=== PATIENT | female | born 1955 | race Caucasian/White ===

== ENCOUNTER → 2016-09-04 | Outpatient (REF) | payer MEDICARE, OTHER ==
[2016-09-04 19:02] LABS: BASO % 0.4 % (0.0-1.0); EOS # 0.2 K/mm3 (0.0-0.50); EOS % 3.7 % (0.0-3.0); LARGE UNSTAINED CELL # 0.2 K/mm3 (0.0-0.4); LARGE UNSTAINED CELL % 2.8 % (0.0-4.0); LYMPH # 1.5 K/mm3 (1.5-4.5); LYMPH % 24.9 % (24.0-44.0); MEAN CORPUSCULAR HEMOGLOBIN 31.3 pg (27.0-33.0); MEAN CORPUSCULAR HGB CONC 31.5 g/dl (32.0-36.5); MEAN CORPUSCULAR VOLUME 99.4 fl (80.0-96.0); MONO # 0.4 K/mm3 (0.0-0.8); MONO % 6.8 % (0.0-5.0); NEUTROPHILS # 3.7 K/mm3 (1.8-7.7); NEUTROPHILS % 61.4 % (36.0-66.0); PLATELET COUNT, AUTOMATED 236 k/mm3 (150-450); RED CELL DISTRIBUTION WIDTH 12.5 % (11.5-14.5)
[2016-09-04 19:19] LABS: REASON FOR REVIEW COMPREHENSIVE REVIEW
[2016-09-07 13:42] LABS: CHOLESTEROL LEVEL 137 MG/DL (<200); FERRITIN 8 NG/ML (8-252); FREE T4 1.01 NG/DL (0.76-1.46); PERCENT SATURATION 11.7 % (13.2-37.4); TOTAL IRON BINDING CAPACITY 480 UG/DL (250-450); TRIGLYCERIDES LEVEL 172 MG/DL (<150)
[2016-09-07 14:07] LABS: VITAMIN B12 LEVEL 630 PG/ML (247-911)
== END | disposition home or self-care (01) ==
LOC: M SFHCPLAZ 15:06
PROVIDERS: ATTEND Physician Assistant Medical
DX: D50.9 Iron deficiency anemia, unspecified (principal); I10 Essential (primary) hypertension; Z98.84 Bariatric surgery status; F32.9 Major depressive disorder, single episode, unspecified; R73.01 Impaired fasting glucose; E55.9 Vitamin D deficiency, unspecified; E53.8 Deficiency of other specified B group vitamins

== ENCOUNTER → 2016-10-06 | Outpatient (REF) | payer MEDICARE, OTHER | LOC: M SFHCPLAZ 15:28 | PROVIDERS: ATTEND Physician Assistant Medical | DX: R31.9 Hematuria, unspecified (principal); R30.0 Dysuria | CPT/HCPCS: 81001; 81002; 87086; G0463 ==

== ENCOUNTER → 2016-11-16 | Day surgery (SDC) | payer MEDICARE, BC, OTHER ==
[~2016-11-16] VITALS: Ht 157.5 cm; Wt 81.6 kg
[~2016-11-16] MED LIST: ACTO30TA7 PO; AMBI10TA PO; B-12100010 PO; BISO10TA PO; CIPRODEX OTIC SUSP 7.5ML As Ordered ONE; COPA20IN SC; CRAN1TAB PO; CRES20TA PO; D 10CAP PO; EPINEPHrine INJ 1 MG/ML 1ML VIAL/AMP As Ordered ONE; FENT12PA TOP; IBUPROFEN 800 MG TAB PO PRN; IRON50TA PO; LIDOCAINE 2% INJ 100 MG/5 ML SDV (FOR ANES.) As Ordered ONE; LR 1,000 ML IV SCH; LYRI100C10 PO; MIDAZOLAM INJ 2 MG/2 ML VIAL (J2250) As Ordered ONE; OMEP10CASR PO; ONDANSETRON 4MG/2ML VIAL (J2405) As Ordered ONE; ONDANSETRON 4MG/2ML VIAL (J2405) IV PRN; PROPOFOL 200 MG/20 ML VIAL As Ordered ONE; SEVE40CA PO; VICO5TAB16 PO; ZOLO100T PO; fentaNYL 100 MCG/2 ML INJECTION (J3010) As Ordered ONE; fentaNYL 100 MCG/2 ML INJECTION (J3010) IV PRN
[2016-11-16 15:45] VITALS: BP 124/58
--- NOTE | 2016-11-17 08:42 | RO ---
DATE OF PROCEDURE: 11/16/2016 PREPROCEDURE DIAGNOSES: Right conductive hearing loss and right chronic otitis media. POSTPROCEDURE DIAGNOSES: Right conductive hearing loss and right chronic otitis media. PROCEDURE: Examination of right ear under anesthesia with right diagnostic myringotomy. SURGEON: Yaw Da Silva MD CLINICAL REVIEW SPECIALIST: ANESTHESIA: INDICATIONS: This is a 60-year-old that has had a long-standing history of mixed hearing loss associated with a significant conductive hearing loss in the right ear. She appeared on examination to have an opacified tympanic membrane, which was retracted. In the office, an office myringotomy had been performed, which allowed a tube to be placed temporarily in her ear. She claimed that she got some relief of her hearing loss from this. However, in spite of the conductive hearing loss on tympanogram, the tube did not stay in very long. She was brought to the operating room for another attempt for ventilation of the middle ear. DESCRIPTION OF PROCEDURE: After satisfactory mask anesthesia administered, the right ear was examined and cleaned of wax. The tympanic membrane appeared to be globally retracted with opacification and diffuse tympanosclerosis noted. There was some neovascularization noted as well. The normal landmarks, including the malleus handle and umbo were invisible because of the retraction of the tympanic membrane. It also appeared to be quite thickened. An anterior-inferior myringotomy was made and it was quite a vascular tympanic membrane, which was very, very thick. No middle ear space was identified through the myringotomy, but there was quite a bit of active bleeding from the incision that was made. Adrenaline pledgets were placed in the drum to control the bleeding. After this was managed, a pick was used to try to move the tympanic membrane to try to establish a middle ear space to place a tube and none could be identified. Only more bleeding was stirred up. There appeared to be a hyperplastic mucosa on the other side of this thickened tympanic membrane that was the source of the bleeding. After adrenaline pledgets were used to control this bleeding, one more attempt at a myringotomy was made more superiorly and again significant bleeding was encountered from the incision alone and no middle ear space was identified. I elected at this point to withdraw and to pursue some more diagnostic tests to establish what the status of the middle ear was. CT of the temporal bone was going to be planned before the next visit. She tolerated the procedure well and was sent to recovery in satisfactory condition. Situation was explained to the that no tube was placed because there was no middle ear space available to sustain it.
== END | disposition home or self-care (01) ==
LOC: M SDC 12:13
PROVIDERS: ATTEND Specialist
DX: H65.21 Chronic serous otitis media, right ear (principal); H90.71 Mixed conductive and sensorineural hearing loss, unilateral, right ear, with unrestricted hearing on the contralateral side; I10 Essential (primary) hypertension; E78.00 Pure hypercholesterolemia, unspecified; G35 Multiple sclerosis; K21.9 Gastro-esophageal reflux disease without esophagitis; M79.7 Fibromyalgia; F32.9 Major depressive disorder, single episode, unspecified; R73.01 Impaired fasting glucose; M50.30 Other cervical disc degeneration, unspecified cervical region; M47.816 Spondylosis without myelopathy or radiculopathy, lumbar region; G47.33 Obstructive sleep apnea (adult) (pediatric); L40.9 Psoriasis, unspecified; Z98.84 Bariatric surgery status; Z79.899 Other long term (current) drug therapy; Z88.0 Allergy status to penicillin; Z88.8 Allergy status to other drugs, medicaments and biological substances
CPT/HCPCS: 69421; J2250; J2405; J3010

== ENCOUNTER → 2016-12-07 | Outpatient (CLI) | payer MEDICARE, BC, OTHER ==
[~2016-12-07] MED LIST changes: -CIPRODEX OTIC SUSP 7.5ML As Ordered ONE; -EPINEPHrine INJ 1 MG/ML 1ML VIAL/AMP As Ordered ONE; -IBUPROFEN 800 MG TAB PO PRN; -LIDOCAINE 2% INJ 100 MG/5 ML SDV (FOR ANES.) As Ordered ONE; -LR 1,000 ML IV SCH; -MIDAZOLAM INJ 2 MG/2 ML VIAL (J2250) As Ordered ONE; -ONDANSETRON 4MG/2ML VIAL (J2405) As Ordered ONE; -ONDANSETRON 4MG/2ML VIAL (J2405) IV PRN; -PROPOFOL 200 MG/20 ML VIAL As Ordered ONE; -fentaNYL 100 MCG/2 ML INJECTION (J3010) As Ordered ONE; -fentaNYL 100 MCG/2 ML INJECTION (J3010) IV PRN
--- NOTE | 2016-12-08 09:05 | REP ---
CT IAC WITHOUT CONTRAST: HISTORY: Hearing loss. The right internal auditory canal, cochlea, vestibule, and semicircular canals are normal in appearance. The ossicles are normal in configuration and position. A soft tissue density is present in the external auditory canal. This abuts the right tympanic membrane. The scutum and tegmen are intact. There is no bone erosion. The middle ear cavity and mastoid air cells are clear. The left internal auditory canal, cochlea, vestibule, and semicircular canals are normal in appearance. The ossicles are normal in configuration and position. The scutum and tegmen are intact. The middle ear cavity and mastoid air cells are clear. IMPRESSION: There is soft tissue density in the right external auditory canal. This abuts the right tympanic membrane. There is no bone erosion. This may represent inflammatory or scar tissue related to chronic otitis. Signed by Jose Antonio Martinez MD 12/08/2016 09:09 A
== END ==
LOC: M RAD 17:02
PROVIDERS: ATTEND Specialist
DX: H90.11 Conductive hearing loss, unilateral, right ear, with unrestricted hearing on the contralateral side (principal); H65.21 Chronic serous otitis media, right ear

== ENCOUNTER → 2017-10-06 | Outpatient (REF) | payer MEDICARE, OTHER ==
[2017-10-06 19:24] LABS: BASO % 0.4 % (0.0-1.0); EOS % 0.6 % (0.0-3.0); HEMATOCRIT 35.7 % (36.0-47.0); HEMOGLOBIN 11.4 g/dl (12.0-16.0); IMMATURE GRANULOCYTE % 0.2 % (0-3.0); LYMPH % 37.1 % (24.0-44.0); MEAN CORPUSCULAR HGB CONC 31.9 g/dl (32.0-36.5); MEAN CORPUSCULAR VOLUME 103.5 fl (80.0-96.0); MONO # 0.5 10^3/uL (0.0-0.8); MONO % 9.9 % (0.0-5.0); NEUTROPHILS # 2.7 10^3/uL (1.8-7.7); NEUTROPHILS % 51.8 % (36.0-66.0); PLATELET COUNT, AUTOMATED 179 10^3/uL (150-450); RED BLOOD COUNT 3.45 10^6/uL (4.00-5.40); RED CELL DISTRIBUTION WIDTH 12.2 % (11.5-14.5); WHITE BLOOD COUNT 5.3 10^3/uL (4.0-10.0)
[2017-10-06 20:06] LABS: PTH INTACT 243.7 PG/ML (18.5-88.0); TOTAL 25(OH) VITAMIN D 52.8 NG/ML (30.0-100.0); VITAMIN B12 LEVEL 1486 PG/ML (247-911)
[2017-10-06 20:32] LABS: ALBUMIN 4.3 GM/DL (3.2-5.2); ALKALINE PHOSPHATASE 147 U/L (45-117); ALT/SGPT 38 U/L (12-78); ANION GAP 11 MEQ/L (8-16); AST/SGOT 44 U/L (7-37); BILIRUBIN,TOTAL 0.3 MG/DL (0.2-1.0); BLOOD UREA NITROGEN 17 MG/DL (7-18); CALCIUM LEVEL 8.3 MG/DL (8.5-10.1); CARBON DIOXIDE LEVEL 24 MEQ/L (21-32); CHLORIDE LEVEL 104 MEQ/L (98-107); CHOLESTEROL LEVEL 121 MG/DL (<200); CPK CREATINE PHOSPHOKINASE 133 U/L (26-192); CREATININE FOR GFR 1.13 MG/DL (0.55-1.30); FERRITIN 317 NG/ML (8-252); FREE T4 0.92 NG/DL (0.76-1.46); GLOMERULAR FILTRATION RATE 52.5 (>51); GLUCOSE, FASTING 105 MG/DL (70-100); HDL CHOLESTEROL 42 MG/DL (>40); IRON (FE) 45 UG/DL (50-170); NON-HDL-C 79 MG/DL; PERCENT SATURATION 15.7 % (13.2-45.0); POTASSIUM SERUM 3.7 MEQ/L (3.5-5.1); SODIUM LEVEL 139 MEQ/L (136-145); TOTAL IRON BINDING CAPACITY 286 UG/DL (250-450); TOTAL PROTEIN 7.6 GM/DL (6.4-8.2); TRIGLYCERIDES LEVEL 125 MG/DL (<150)
== END ==
LOC: M SFHCPLAZ 16:00
DX: E53.8 Deficiency of other specified B group vitamins (principal); D50.9 Iron deficiency anemia, unspecified; E55.9 Vitamin D deficiency, unspecified; E78.5 Hyperlipidemia, unspecified; F32.9 Major depressive disorder, single episode, unspecified
CPT/HCPCS: 82550

== ENCOUNTER → 2017-11-26 | Outpatient (CLI) | payer MEDICARE, BC, OTHER | LOC: M RAD 09:09 | DX: E21.3 Hyperparathyroidism, unspecified (principal) | CPT/HCPCS: 78070 ==

== ENCOUNTER → 2018-05-13 | Outpatient (REF) | payer MEDICARE, OTHER ==
[2018-05-13 15:47] LABS: BASO # 0.1 10^3/uL (0.0-0.2); BASO % 0.7 % (0.0-1.0); EOS # 0.3 10^3/uL (0.0-0.50); EOS % 3.9 % (0.0-3.0); HEMATOCRIT 34.4 % (36.0-47.0); HEMOGLOBIN 10.9 g/dl (12.0-15.5); IMMATURE GRANULOCYTE % 0.2 % (0-3.0); LYMPH # 3.2 10^3/uL (1.5-4.5); LYMPH % 39.1 % (24.0-44.0); MEAN CORPUSCULAR HEMOGLOBIN 33.1 pg (27.0-33.0); MEAN CORPUSCULAR HGB CONC 31.7 g/dl (32.0-36.5); MEAN CORPUSCULAR VOLUME 104.6 fl (80.0-96.0); MONO # 0.5 10^3/uL (0.0-0.8); NEUTROPHILS # 4.1 10^3/uL (1.8-7.7); NEUTROPHILS % 50.1 % (36.0-66.0); PLATELET COUNT, AUTOMATED 200 10^3/uL (150-450); RED BLOOD COUNT 3.29 10^6/uL (4.00-5.40); RETIC HEMOGLOBIN EQUIVALENT 37.6 pg (24-36); RETICULOCYTE # 45.1 10^9/L (17-77); RETICULOCYTE % 1.4 % (0.5-1.5); WHITE BLOOD COUNT 8.2 10^3/uL (4.0-10.0)
[2018-05-13 15:50] LABS: APPEARANCE, URINE CLEAR (CLEAR); BACTERIA, URINE AUTO NEGATIVE (NEGATIVE); BILIRUBIN, URINE AUTO NEGATIVE (NEGATIVE); BLOOD, URINE BLOOD NEGATIVE (NEGATIVE); COLOR, URINE YELLOW (YELLOW); GLUCOSE, URINE (UA) AUTO NEGATIVE (NEGATIVE); KETONE, URINE AUTO NEGATIVE (NEGATIVE); LEUKOCYTE ESTERASE, URINE AUTO NEGATIVE (NEGATIVE); MUCUS, URINE SMALL (NEGATIVE); NITRITE, URINE AUTO NEGATIVE (NEGATIVE); PROTEIN, URINE AUTO NEGATIVE (NEGATIVE); RBC, URINE AUTO 1 /HPF (0-3); SPECIFIC GRAVITY URINE AUTO 1.015 (1.002-1.035); SQUAMOUS EPITHELIAL CELL UR AU 0 /HPF (0-6); UROBILINOGEN, URINE AUTO 0.2 mg/dL (0.0-2.0); WBC, URINE AUTO 2 /HPF (0-3)
[2018-05-13 16:04] LABS: TOTAL PROTEIN 7.4 GM/DL (6.4-8.2)
[2018-05-13 16:06] LABS: TOTAL 25(OH) VITAMIN D 35.4 NG/ML (30.0-100.0)
[2018-05-13 16:07] LABS: PTH INTACT 120.4 PG/ML (18.5-88.0)
[2018-05-13 16:07] LABS: THYROID PEROXIDASE ANTIBODY < 28.0 U/ML (<60.0)
[2018-05-13 16:09] LABS: ESTIMATED AVERAGE GLUCOSE 123 MG/DL (60-110); HEMOGLOBIN A1c 5.9 %
[2018-05-13 16:30] LABS: MALB URINE SIEMENS 10.1 MG/L
[2018-05-13 16:41] LABS: MAU/CREAT RATIO 8.9 MCG/MG (0.0-30.0)
[2018-05-13 17:20] LABS: HEMATOCRIT 34.4 % (36.0-47.0)
[2018-05-17 11:04] LABS: PRETREATED FOLATE FOR RBCFOL 12.4 NG/ML
[2018-05-17 13:50] LABS: ALBUMIN % 58.1 % (55.8-66.1); ALPHA-1-GLOBULIN % 4.8 % (2.9-4.9); ALPHA-1-GLOBULINS 0.36 GM/DL (0.17-0.41); ALPHA-2-GLOBULINS 0.93 GM/DL (0.42-0.99); ALPHA-2-GLOBULINS % 12.5 % (7.1-11.8); BETA-1-GLOBULINS 0.47 GM/DL (0.28-0.60); BETA-1-GLOBULINS % 6.4 % (4.7-7.2); BETA-2-GLOBULINS % 6.4 % (3.2-6.5); GAMMA GLOBULIN % 11.8 % (11.1-18.8)
[2018-05-17 13:51] LABS: BETA-2-GLOBULINS 0.47 GM/DL (0.19-0.55); GAMMA GLOBULINS 0.87 GM/DL (0.65-1.58)
== END ==
LOC: M SFHCPLAZ 14:35
DX: D50.9 Iron deficiency anemia, unspecified (principal); R73.01 Impaired fasting glucose; E55.9 Vitamin D deficiency, unspecified; E78.5 Hyperlipidemia, unspecified; Z79.899 Other long term (current) drug therapy
CPT/HCPCS: 83525

== ENCOUNTER → 2018-12-01 | Outpatient (REF) | payer MEDICARE, OTHER ==
[~2018-12-01] MED LIST changes: +ACTO30TA15 PO; -ACTO30TA7 PO; -BISO10TA PO; +BISO10TA13 PO; -CRES20TA PO; +CRES20TA2 PO; +FENT12DI12 TOP; -FENT12PA TOP; -LYRI100C10 PO; +PREG100CA PO; -VICO5TAB16 PO; +VICO5TAB17 PO
[2018-12-01 19:18] LABS: ALBUMIN 4.5 GM/DL (3.2-5.2); ALT/SGPT 33 U/L (12-78); BILIRUBIN,TOTAL 0.3 MG/DL (0.2-1.0); BLOOD UREA NITROGEN 19 MG/DL (7-18); CALCIUM LEVEL 8.2 MG/DL (8.8-10.2); CARBON DIOXIDE LEVEL 28 MEQ/L (21-32); CHLORIDE LEVEL 106 MEQ/L (98-107); FERRITIN 117 NG/ML (8-252); GLOMERULAR FILTRATION RATE > 60.0 (>45); GLUCOSE, FASTING 103 MG/DL (70-100); IRON (FE) 115 UG/DL (50-170); PERCENT SATURATION 32.3 % (13.2-45.0); POTASSIUM SERUM 4.6 MEQ/L (3.5-5.1); SODIUM LEVEL 140 MEQ/L (136-145); TOTAL IRON BINDING CAPACITY 356 UG/DL (250-450); TOTAL PROTEIN 7.8 GM/DL (6.4-8.2)
[2018-12-01 19:24] LABS: VITAMIN B12 LEVEL 571 PG/ML (247-911)
[2018-12-01 20:13] LABS: HEMOGLOBIN A1c 6.2 %
[2018-12-01 20:22] LABS: BASO # 0.1 10^3/uL (0.0-0.2); BASO % 1.2 % (0.0-1.0); EOS # 0.2 10^3/uL (0.0-0.50); EOS % 2.7 % (0.0-3.0); HEMATOCRIT 36.2 % (36.0-47.0); HEMOGLOBIN 11.3 g/dl (12.0-15.5); LYMPH # 2.6 10^3/uL (1.5-4.5); LYMPH % 35.4 % (24.0-44.0); MEAN CORPUSCULAR HEMOGLOBIN 32.9 pg (27.0-33.0); MEAN CORPUSCULAR HGB CONC 31.2 g/dl (32.0-36.5); MEAN CORPUSCULAR VOLUME 105.5 fl (80.0-96.0); MONO # 0.6 10^3/uL (0.0-0.8); MONO % 7.8 % (0.0-5.0); NEUTROPHILS # 3.9 10^3/uL (1.8-7.7); NEUTROPHILS % 52.4 % (36.0-66.0); PLATELET COUNT, AUTOMATED 217 10^3/uL (150-450); RED BLOOD COUNT 3.43 10^6/uL (4.00-5.40); WHITE BLOOD COUNT 7.5 10^3/uL (4.0-10.0)
[2018-12-03 10:11] LABS: H PYLORI SERUM QUANT IgG ABY 0.3 (0.00-0.79)
[2018-12-03 14:36] LABS: INSULIN LEVEL 13.9 uIU/mL (2.6-24.9)
== END ==
LOC: M SFHCPLAZ 15:10
PROVIDERS: ATTEND Family Medicine
DX: D50.9 Iron deficiency anemia, unspecified (principal); R73.01 Impaired fasting glucose; M79.7 Fibromyalgia; E53.8 Deficiency of other specified B group vitamins
CPT/HCPCS: 36415; 80053; 82607; 82728; 83036; 83525; 83550; 83735; 85025; 86677; G0463

== ENCOUNTER 2019-02-26 20:12 | Emergency (ER) | payer MEDICARE, OTHER ==
[~2019-02-26] VITALS: Ht 157.5 cm; Wt 94.1 kg
[2019-02-26] MEDS ORDERED: IRBE150T12 PO (20:20)
[2019-02-26] MEDS ORDERED: SAVE100T PO (20:20)
[2019-02-26 20:56] LABS: BASO % 0.4 % (0.0-1.0); HEMATOCRIT 35.2 % (36.0-47.0); HEMOGLOBIN 11.8 g/dl (12.0-15.5); LYMPH % 12.5 % (24.0-44.0); MEAN CORPUSCULAR HEMOGLOBIN 33.4 pg (27.0-33.0); MEAN CORPUSCULAR HGB CONC 33.5 g/dl (32.0-36.5); MEAN CORPUSCULAR VOLUME 99.7 fl (80.0-96.0); MONO # 0.4 10^3/uL (0.0-0.8); MONO % 4.4 % (0.0-5.0); NEUTROPHILS # 6.7 10^3/uL (1.8-7.7); NEUTROPHILS % 82.3 % (36.0-66.0); PLATELET COUNT, AUTOMATED 180 10^3/uL (150-450); RED BLOOD COUNT 3.53 10^6/uL (4.00-5.40); WHITE BLOOD COUNT 8.2 10^3/uL (4.0-10.0)
[2019-02-26 21:14] VITALS: BP 139/67
[2019-02-26 21:16] LABS: BLOOD UREA NITROGEN 14 MG/DL (7-18); CALCIUM LEVEL 9.4 MG/DL (8.8-10.2); CARBON DIOXIDE LEVEL 23 MEQ/L (21-32); CHLORIDE LEVEL 104 MEQ/L (98-107); CREATININE FOR GFR 1.03 MG/DL (0.55-1.30); GLUCOSE, FASTING 179 MG/DL (70-100); POTASSIUM SERUM 3.9 MEQ/L (3.5-5.1); SODIUM LEVEL 137 MEQ/L (136-145)
[2019-02-26] MEDS ORDERED: ONDANSETRON 4MG/2ML VIAL (J2405) IV ONE (21:45)
[2019-02-26] MEDS ORDERED: CBD OIL (21:53)
[2019-02-26 21:57] LABS: CK-MB VALUE MASS 2.8 NG/ML (<3.6); CPK CREATINE PHOSPHOKINASE 160 U/L (26-192); MB/CK RELATIVE INDEX 1.75 (< OR =4); NT-PRO BNP 388 PG/ML (<125); TROPONIN I < 0.02 NG/ML (< 0.10)
[2019-02-26] MEDS ORDERED: NS 1,000 ML IV ONE (22:00)
[2019-02-26] MEDS ORDERED: METOCLOPRAMIDE INJ 10MG/2ML VIAL (J2765) IV ONE (23:00)
[2019-02-26] MEDS ORDERED: NORCO, ANEXSIA 5/325MG TABLET (HYDROcodone/ACETAMINOPHEN) PO ONE (23:00)
[2019-02-26] MEDS ORDERED: REGL5TAB2 PO (23:37)
--- NOTE | 2019-02-27 07:05 | REP ---
PA and lateral chest: Comparison is 10/31/2014. The lung maloney are clear. The cardiac size is normal. The chi, mediastinum, and skeletal structures are unremarkable. There is chronic elevation of the right hemidiaphragm. Impression: Negative PA and lateral chest. There is no interval change. Electronically Signed by Isaak Menon MD 02/27/2019 06:55 A
--- NOTE | 2019-02-27 07:20 | ECGEPIP ---
[facility] - ED Test Date: 2019-02-26 Pat Name: SERENE HOLLIS Department: Room: - Gender: Female [employer]: LR : 1955 Requested By: SWAPNIL Olvera PA-C Order Number: [id number] Reading MD: Figueroa Rogers Measurements Intervals [place] Rate: 95 P: 56 DC: 191 QRS: 16 QRSD: 90 T: 20 QT: 356 QTc: 449 Interpretive Statements SINUS RHYTHM POSSIBLE PRIOR INFERIOR INFARCT BASELINE ARTIFACT AFFECTS INTERPRETATION SIMILAR TO 10/21/14 Electronically Signed on 02-27-2019 7:19:48 EDT by Figueroa Rogers
== END 2019-02-26 23:51 | disposition home or self-care (01) ==
LOC: M ED 20:12
DX: R11.0 Nausea (principal); M79.10 Myalgia, unspecified site; R53.1 Weakness; I10 Essential (primary) hypertension; E78.5 Hyperlipidemia, unspecified; Z98.84 Bariatric surgery status; Z88.0 Allergy status to penicillin; Z88.8 Allergy status to other drugs, medicaments and biological substances; Z79.899 Other long term (current) drug therapy
CPT/HCPCS: 71046; 80048; 81001; 82550; 82553; 83880; 84484; 85025; 93005; 96374; 96375; 99284; J2405; J2765

== ENCOUNTER → 2019-09-27 | Outpatient (CLI) | payer MEDICARE, BC, OTHER ==
[~2019-09-27] MED LIST changes: +CBD OIL; +IRBE150T7 PO; +REGL5TAB2 PO; +SAVE100T PO
[2019-09-27 14:19] LABS: BASO # 0.1 10^3/uL (0.0-0.2); BASO % 0.8 % (0.0-1.0); EOS # 0.2 10^3/uL (0.0-0.5); EOS % 2.3 % (0.0-3.0); HEMATOCRIT 35.6 % (36.0-47.0); HEMOGLOBIN 11.7 g/dl (12.0-15.5); LYMPH # 2.4 10^3/uL (1.5-5.0); LYMPH % 26.2 % (24.0-44.0); MEAN CORPUSCULAR HEMOGLOBIN 33.1 pg (27.0-33.0); MEAN CORPUSCULAR HGB CONC 32.9 g/dl (32.0-36.5); MEAN CORPUSCULAR VOLUME 100.8 fl (80.0-96.0); MONO # 0.7 10^3/uL (0.0-0.8); MONO % 7.5 % (0.0-5.0); NEUTROPHILS # 5.8 10^3/uL (1.5-8.5); NEUTROPHILS % 62.9 % (36.0-66.0); PLATELET COUNT, AUTOMATED 233 10^3/uL (150-450); RED BLOOD COUNT 3.53 10^6/uL (4.00-5.40); WHITE BLOOD COUNT 9.2 10^3/uL (4.0-10.0)
[2019-09-27 14:37] LABS: HEMOGLOBIN A1c 6.2 %
[2019-09-27 14:45] LABS: ALBUMIN 4.6 GM/DL (3.2-5.2); BILIRUBIN,TOTAL 0.5 MG/DL (0.2-1.0); C REACTIVE PROTEIN QUANTITATIV 1.4 MG/DL (0.00-0.30); CALCIUM LEVEL 9.5 MG/DL (8.8-10.2); CHOLESTEROL RISK RATIO 2.466 (<5); CREATININE FOR GFR 1.04 MG/DL (0.55-1.30); GLOMERULAR FILTRATION RATE 57.4 (>45); POTASSIUM SERUM 4.8 MEQ/L (3.5-5.1); TOTAL PROTEIN 7.8 GM/DL (6.4-8.2)
[2019-09-27 14:53] LABS: PTH INTACT 162.8 PG/ML (18.5-88.0); TOTAL 25(OH) VITAMIN D 52.1 NG/ML (30.0-100.0)
--- NOTE | 2019-09-29 07:23 | ECHO ---
DATE OF PROCEDURE: 09/27/2019 REFERRING PHYSICIAN: Dr. Tre Dumont REASON FOR STUDY: Shortness of breath. 2D MEASUREMENTS: IVS - 1.5 cm LVPW- 1.2 cm LA - 0.6 cm Mitral E - 0.62, Berta A - 1.1 with a ratio of 0.6 2D COMMENTS: 1. Normal left ventricular size, wall thickness, and normal global left ventricular systolic function. The estimated ventricular systolic ejection fraction is 60-65%. 2. Normal left atrium. Normal right atrium and right ventricle. 3. The atrial septum appeared normal without evidence of defect or shunt. 4. Normal aortic root. 5. No pericardial effusion seen. 6. Mildly calcified aortic valve with normal leaflet excursion. No mitral valve, tricuspid valve, and pulmonic valve. The proximal pulmonary artery branches were not well visualized. 7. The inferior vena cava was normal in size at 1.1 cm. Central venous pressure is most likely normal. DOPPLER: No significant valvular abnormalities detected but trace pulmonic regurgitation. IMPRESSION: 1. Normal global left ventricular systolic function. There is some features of left ventricular diastolic dysfunction manifested by abnormal relaxation. 2. Aortic valve, aortic valve sclerosis without stenosis or aortic radiation. 3. Pulmonic regurgitation. 4. Relatively normal transthoracic echocardiogram. [facility]
== END ==
LOC: M CARPUL 13:26
PROVIDERS: ATTEND Family Medicine
DX: E78.5 Hyperlipidemia, unspecified (principal); R73.01 Impaired fasting glucose; D50.9 Iron deficiency anemia, unspecified; E55.9 Vitamin D deficiency, unspecified; R06.09 Other forms of dyspnea

== ENCOUNTER → 2020-10-03 | Outpatient (REF) | payer MEDICARE, OTHER ==
[2020-10-03 10:56] LABS: BASO # 0.1 10^3/uL (0.0-0.2); BASO % 1.1 % (0.0-1.0); EOS # 0.3 10^3/uL (0.0-0.5); EOS % 3.8 % (0.0-3.0); HEMOGLOBIN 10.6 g/dl (12.0-15.5); LYMPH # 3.9 10^3/uL (1.5-5.0); LYMPH % 53.5 % (24.0-44.0); MEAN CORPUSCULAR HEMOGLOBIN 32.4 pg (27.0-33.0); MEAN CORPUSCULAR HGB CONC 31.2 g/dl (32.0-36.5); MONO # 0.6 10^3/uL (0.0-0.8); MONO % 8.3 % (2.0-8.0); NEUTROPHILS # 2.4 10^3/uL (1.5-8.5); NEUTROPHILS % 33.2 % (36.0-66.0); PLATELET COUNT, AUTOMATED 222 10^3/uL (150-450); RED BLOOD COUNT 3.27 10^6/uL (4.00-5.40); WHITE BLOOD COUNT 7.3 10^3/uL (4.0-10.0)
[2020-10-03 11:20] LABS: HEMOGLOBIN A1c 5.9 %
[2020-10-03 11:38] LABS: ALBUMIN 4.4 GM/DL (3.2-5.2); ALT/SGPT 33 U/L (12-78); BILIRUBIN,TOTAL 0.3 MG/DL (0.2-1.0); BLOOD UREA NITROGEN 15 MG/DL (7-18); CALCIUM LEVEL 9.1 MG/DL (8.8-10.2); CARBON DIOXIDE LEVEL 27 MEQ/L (21-32); CHLORIDE LEVEL 108 MEQ/L (98-107); CHOLESTEROL LEVEL 159 MG/DL (<200); CHOLESTEROL RISK RATIO 2.839 (<5); CREATININE FOR GFR 0.98 MG/DL (0.55-1.30); FERRITIN 128 NG/ML (8-252); GLOMERULAR FILTRATION RATE > 60.0 (>45); GLUCOSE, FASTING 103 MG/DL (70-100); HDL CHOLESTEROL 56 MG/DL (>40); LDL CHOLESTEROL 70 MG/DL (<100); NON-HDL-C 103 MG/DL; POTASSIUM SERUM 4.9 MEQ/L (3.5-5.1); SODIUM LEVEL 141 MEQ/L (136-145); TOTAL 25(OH) VITAMIN D 48.8 NG/ML (30.0-100.0); TOTAL PROTEIN 7.2 GM/DL (6.4-8.2); TRIGLYCERIDES LEVEL 167 MG/DL (<150); VITAMIN B12 LEVEL 457 PG/ML (247-911)
[2020-10-03 11:42] LABS: MALB URINE SIEMENS 6.7 MG/L; MAU/CREAT RATIO 6.6 MCG/MG (0.0-30.0)
== END ==
LOC: M SFHCPLAZ 08:47
PROVIDERS: ATTEND Family Medicine
DX: E78.5 Hyperlipidemia, unspecified (principal); I10 Essential (primary) hypertension; R73.01 Impaired fasting glucose; D50.9 Iron deficiency anemia, unspecified; E53.8 Deficiency of other specified B group vitamins; Z79.899 Other long term (current) drug therapy

== ENCOUNTER 2021-03-18 07:50 | Outpatient (CLI) | payer MEDICARE, BC, OTHER ==
[2021-03-18] VITALS (7 sets, daily range): BP systolic 138–152; BP diastolic 71–88
[~2021-03-18] VITALS: Ht 157.5 cm; Wt 81.8 kg
[2021-03-18] MEDS ORDERED: OCRELIZUMAB 300 MG in NS 250 ML IV ONE (08:00)
[2021-03-18] MEDS ORDERED: ACETAMINOPHEN TAB 650MG DOSE (2X325MG) PO ONE (09:45)
[2021-03-18] MEDS ORDERED: NS IV ONE ×2 (09:45)
[2021-03-18] MEDS ORDERED: DIPHENHYDRAMINE HCL IV ONE (09:45)
[2021-03-18] MEDS ORDERED: METHYLPREDNISOLONE IV ONE (09:45)
== END 2021-03-18 13:50 | disposition home or self-care (01) ==
LOC: M INFU 07:50
PROVIDERS: ATTEND Physician Assistant
DX: G35 Multiple sclerosis (principal); Z88.0 Allergy status to penicillin
CPT/HCPCS: 96365; 96366; 96367; J1200; J2350; J2930

== ENCOUNTER 2021-04-03 09:12 | Outpatient (CLI) | payer MEDICARE, BC, OTHER ==
[~2021-04-03] VITALS: Ht 157.5 cm; Wt 81.8 kg
[~2021-04-03 09:12] MED LIST changes: +ACETAMINOPHEN TAB 650MG DOSE (2X325MG) PO ONE; +DIPHENHYDRAMINE HCL IV ONE; +METHYLPREDNISOLONE IV ONE; +NS IV ONE; +OCRELIZUMAB 300 MG in NS 250 ML IV ONE
[2021-04-03 09:25] VITALS: BP 148/73
[2021-04-03 11:15] VITALS: BP 131/63
[2021-04-03 11:45] VITALS: BP 135/77
[2021-04-03 12:15] VITALS: BP 144/67
[2021-04-03 12:45] VITALS: BP 129/79
[2021-04-03 13:45] VITALS: BP 140/72
== END 2021-04-03 13:45 | disposition home or self-care (01) ==
LOC: M INFU 09:12
PROVIDERS: ATTEND Physician Assistant
DX: G35 Multiple sclerosis (principal); Z88.0 Allergy status to penicillin
CPT/HCPCS: 96365; 96366; 96367; J1200; J2350; J2930

== ENCOUNTER → 2021-05-30 | Outpatient (CLI) | payer MEDICARE, BC, OTHER ==
[~2021-05-30] MED LIST changes: -ACETAMINOPHEN TAB 650MG DOSE (2X325MG) PO ONE; -DIPHENHYDRAMINE HCL IV ONE; -METHYLPREDNISOLONE IV ONE; -NS IV ONE; -OCRELIZUMAB 300 MG in NS 250 ML IV ONE
[2021-05-30 13:06] LABS: BASO # 0.1 10^3/uL (0.0-0.2); BASO % 1.8 % (0.0-1.0); EOS # 0.3 10^3/uL (0.0-0.5); EOS % 5.3 % (0.0-3.0); HEMATOCRIT 36.2 % (36.0-47.0); HEMOGLOBIN 11.5 g/dl (12.0-15.5); LYMPH # 1.5 10^3/uL (1.5-5.0); LYMPH % 28.5 % (24.0-44.0); MEAN CORPUSCULAR HEMOGLOBIN 32.1 pg (27.0-33.0); MEAN CORPUSCULAR HGB CONC 31.8 g/dl (32.0-36.5); MEAN CORPUSCULAR VOLUME 101.1 fl (80.0-96.0); MONO # 0.5 10^3/uL (0.0-0.8); MONO % 9.4 % (2.0-8.0); NEUTROPHILS # 2.8 10^3/uL (1.5-8.5); NEUTROPHILS % 54.6 % (36.0-66.0); PLATELET COUNT, AUTOMATED 179 10^3/uL (150-450); RED BLOOD COUNT 3.58 10^6/uL (4.00-5.40); WHITE BLOOD COUNT 5.1 10^3/uL (4.0-10.0)
[2021-05-30 13:32] LABS: FERRITIN 172 NG/ML (8-252); TOTAL PROTEIN 7.9 GM/DL (6.4-8.2)
[2021-05-30 13:42] LABS: PTH INTACT 137.8 PG/ML (18.5-88.0); TOTAL 25(OH) VITAMIN D 49.2 NG/ML (30.0-100.0); VITAMIN B12 LEVEL 335 PG/ML (247-911)
[2021-05-30 14:50] LABS: HEMOGLOBIN A1c 5.7 %
[2021-05-31 12:07] LABS: H PYLORI SERUM QUANT IgG ABY 0.89 (0.00-0.79); INSULIN LEVEL 8.5 uIU/mL (2.6-24.9)
== END ==
LOC: M LAB 11:36
PROVIDERS: ATTEND Family Medicine
DX: E53.8 Deficiency of other specified B group vitamins (principal); D50.9 Iron deficiency anemia, unspecified; R73.01 Impaired fasting glucose; K21.9 Gastro-esophageal reflux disease without esophagitis; E55.9 Vitamin D deficiency, unspecified; M79.7 Fibromyalgia; Z79.899 Other long term (current) drug therapy

== ENCOUNTER 2021-10-22 08:39 | Outpatient (CLI) | payer MEDICARE, BC, OTHER ==
[~2021-10-22] VITALS: Ht 157.5 cm; Wt 75.7 kg
[2021-10-22] VITALS (7 sets, daily range): BP systolic 133–199; BP diastolic 74–97
[2021-10-22] MEDS ORDERED: methylPREDNISolone 125MG 2ML VIAL IV ONE (09:00)
[2021-10-22] MEDS ORDERED: ACETAMINOPHEN TAB 650MG DOSE (2X325MG) PO ONE (09:00)
[2021-10-22] MEDS ORDERED: OCRELIZUMAB 600 MG in NS 500 ML IV ONE (09:00)
[2021-10-22] MEDS ORDERED: diphenhydrAMINE 50MG CAP PO ONE (09:00)
== END 2021-10-22 13:20 | disposition home or self-care (01) ==
LOC: M INFU 08:39
PROVIDERS: ATTEND Physician Assistant
DX: G35 Multiple sclerosis (principal); Z88.0 Allergy status to penicillin
CPT/HCPCS: 96365; 96366; J2350; J2930

== ENCOUNTER → 2021-12-01 | Outpatient (CLI) | payer MEDICARE, BC, OTHER ==
[2021-12-01 17:31] LABS: BASO # 0.1 10^3/uL (0.0-0.2); BASO % 1.3 % (0.0-1.0); EOS # 0.2 10^3/uL (0.0-0.5); EOS % 2.5 % (0.0-3.0); HEMATOCRIT 35.3 % (36.0-47.0); HEMOGLOBIN 11.5 g/dl (12.0-15.5); LYMPH # 1.8 10^3/uL (1.5-5.0); LYMPH % 21.4 % (24.0-44.0); MEAN CORPUSCULAR HGB CONC 32.6 g/dl (32.0-36.5); MEAN CORPUSCULAR VOLUME 101.1 fl (80.0-96.0); MONO # 0.9 10^3/uL (0.0-0.8); MONO % 10.2 % (2.0-8.0); NEUTROPHILS # 5.5 10^3/uL (1.5-8.5); NEUTROPHILS % 64.2 % (36.0-66.0); PLATELET COUNT, AUTOMATED 166 10^3/uL (150-450); RED BLOOD COUNT 3.49 10^6/uL (4.00-5.40); WHITE BLOOD COUNT 8.6 10^3/uL (4.0-10.0)
[2021-12-01 17:58] LABS: ALBUMIN 4.5 GM/DL (3.2-5.2); ALT/SGPT 23 U/L (12-78); BILIRUBIN,TOTAL 0.3 MG/DL (0.2-1.0); BLOOD UREA NITROGEN 20 MG/DL (7-18); CALCIUM LEVEL 9.8 MG/DL (8.8-10.2); CARBON DIOXIDE LEVEL 22 MEQ/L (21-32); CHLORIDE LEVEL 113 MEQ/L (98-107); CHOLESTEROL LEVEL 158 MG/DL (<200); CHOLESTEROL RISK RATIO 2.358 (<5); CREATININE FOR GFR 0.77 MG/DL (0.55-1.30); FERRITIN 102 NG/ML (8-252); GLOMERULAR FILTRATION RATE > 60.0 (>45); GLUCOSE, FASTING 99 MG/DL (70-100); HDL CHOLESTEROL 67 MG/DL (>40); LDL CHOLESTEROL 68 MG/DL (<100); NON-HDL-C 91 MG/DL; POTASSIUM SERUM 4.5 MEQ/L (3.5-5.1); PTH INTACT 185.4 PG/ML (18.5-88.0); SODIUM LEVEL 143 MEQ/L (136-145); TOTAL 25(OH) VITAMIN D 51.4 NG/ML (30.0-100.0); TOTAL PROTEIN 7.2 GM/DL (6.4-8.2); TRIGLYCERIDES LEVEL 114 MG/DL (<150)
[2021-12-02 17:06] LABS: VITAMIN B12 LEVEL 274 PG/ML (247-911)
== END ==
LOC: M PLALAB 15:35
PROVIDERS: ATTEND Family Medicine
DX: M79.7 Fibromyalgia (principal); E78.00 Pure hypercholesterolemia, unspecified; D50.9 Iron deficiency anemia, unspecified
CPT/HCPCS: 36415; 80053; 80061; 80307; 82306; 82607; 82728; 83520; 83970; 85025; G0480

== ENCOUNTER → 2022-02-19 | Outpatient (CLI) | payer MEDICARE, BC, OTHER | LOC: M RAD 08:07 | PROVIDERS: ATTEND Nurse Practitioner Women's Health | DX: R35.0 Frequency of micturition (principal); R33.9 Retention of urine, unspecified ==

== ENCOUNTER → 2022-02-24 | Outpatient (REF) | payer MEDICARE, OTHER ==
[2022-02-24 14:29] LABS: AMORPHOUS SEDIMENT SMALL (NEGATIVE); APPEARANCE, URINE CLOUDY (CLEAR); BACTERIA, URINE AUTO NEGATIVE (NEGATIVE); BILIRUBIN, URINE AUTO NEGATIVE (NEGATIVE); BLOOD, URINE BLOOD NEGATIVE (NEGATIVE); COLOR, URINE YELLOW (YELLOW); GLUCOSE, URINE (UA) AUTO NEGATIVE (NEGATIVE); KETONE, URINE AUTO NEGATIVE (NEGATIVE); LEUKOCYTE ESTERASE, URINE AUTO NEGATIVE (NEGATIVE); MUCUS, URINE SMALL (NEGATIVE); NITRITE, URINE AUTO NEGATIVE (NEGATIVE); PROTEIN, URINE AUTO 1+ mg/dL (NEGATIVE); RBC, URINE AUTO 2 /HPF (0-3); SPECIFIC GRAVITY URINE AUTO 1.018 (1.002-1.035); SQUAMOUS EPITHELIAL CELL UR AU 0 /HPF (0-6); UROBILINOGEN, URINE AUTO 0.2 mg/dL (0.0-2.0); WBC, URINE AUTO 0 /HPF (0-3)
== END ==
LOC: M SMT 12:48
PROVIDERS: ATTEND Urology
DX: R33.9 Retention of urine, unspecified (principal)

== ENCOUNTER 2022-05-06 08:20 | Outpatient (CLI) | payer MEDICARE, BC, OTHER ==
[~2022-05-06] VITALS: Ht 157.5 cm; Wt 72.3 kg
[2022-05-06 08:20] VITALS: BP 182/84
[~2022-05-06 08:20] MED LIST changes: +OCRELIZUMAB 600 MG in NS 500 ML IV ONE
[2022-05-06] MEDS ORDERED: OCRELIZUMAB 600 MG in NS 500 ML IV ONE (08:30)
[2022-05-06] MEDS ORDERED: diphenhydrAMINE 25MG CAP PO ONE (08:30)
[2022-05-06] MEDS ORDERED: ACETAMINOPHEN TAB 650MG DOSE (2X325MG) PO ONE (08:30)
[2022-05-06] MEDS ORDERED: methylPREDNISolone 125MG 2ML VIAL IV ONE (08:30)
[2022-05-06] MEDS ORDERED: TAMS1CAP17 PO (09:11)
[2022-05-06 09:30] VITALS: BP 179/88
[2022-05-06 10:00] VITALS: BP 175/84
[2022-05-06 10:30] VITALS: BP 177/87
[2022-05-06 11:24] VITALS: BP 173/86
[2022-05-06 13:10] VITALS: BP 159/80
== END 2022-05-06 13:10 | disposition home or self-care (01) ==
LOC: M INFU 08:20
PROVIDERS: ATTEND Physician Assistant
DX: G35 Multiple sclerosis (principal); Z88.0 Allergy status to penicillin; Z88.8 Allergy status to other drugs, medicaments and biological substances
CPT/HCPCS: 96365; 96366; 96375; J2350; J2930

== ENCOUNTER → 2022-05-11 | Outpatient (CLI) | payer MEDICARE, BC, OTHER ==
[~2022-05-11] MED LIST changes: -OCRELIZUMAB 600 MG in NS 500 ML IV ONE; +TAMS1CAP17 PO
== END ==
LOC: M WHC 12:45
PROVIDERS: ATTEND Family Medicine
DX: Z12.31 Encounter for screening mammogram for malignant neoplasm of breast (principal); E07.9 Disorder of thyroid, unspecified; E78.00 Pure hypercholesterolemia, unspecified

== ENCOUNTER → 2022-05-11 | Outpatient (CLI) | payer MEDICARE, BC, OTHER ==
[2022-05-11 15:45] LABS: HEMATOCRIT 37.6 % (36.0-47.0)
[2022-05-11 15:56] LABS: HEMOGLOBIN A1c 5.9 %
[2022-05-11 15:59] LABS: ALBUMIN 4.3 GM/DL (3.2-5.2); ALT/SGPT 25 U/L (12-78); BILIRUBIN,TOTAL 0.4 MG/DL (0.2-1.0); BLOOD UREA NITROGEN 16 MG/DL (7-18); CALCIUM LEVEL 8.9 MG/DL (8.8-10.2); CARBON DIOXIDE LEVEL 27 MEQ/L (21-32); CHLORIDE LEVEL 108 MEQ/L (98-107); CHOLESTEROL LEVEL 144 MG/DL (<200); CREATININE FOR GFR 0.89 MG/DL (0.55-1.30); FREE T4 0.76 NG/DL (0.76-1.46); GLOMERULAR FILTRATION RATE > 60.0 (>45); GLUCOSE, FASTING 150 MG/DL (70-100); HDL CHOLESTEROL 72 MG/DL (>40); LDL CHOLESTEROL 50 MG/DL (<100); NON-HDL-C 72 MG/DL; NT-PRO BNP 97 PG/ML (<125); POTASSIUM SERUM 4.3 MEQ/L (3.5-5.1); SODIUM LEVEL 139 MEQ/L (136-145); TOTAL PROTEIN 7.4 GM/DL (6.4-8.2); TRIGLYCERIDES LEVEL 108 MG/DL (<150)
[2022-05-13 14:40] LABS: ALBUMIN 4.66 GM/DL (3.29-5.55); ALPHA-1-GLOBULIN % 4.1 % (2.9-4.9); ALPHA-2-GLOBULINS 0.89 GM/DL (0.42-0.99); BETA-1-GLOBULINS 0.45 GM/DL (0.28-0.60); BETA-1-GLOBULINS % 6.1 % (4.7-7.2); BETA-2-GLOBULINS 0.37 GM/DL (0.19-0.55); GAMMA GLOBULIN % 9.8 % (11.1-18.8); GAMMA GLOBULINS 0.73 GM/DL (0.65-1.58)
== END ==
LOC: M PLALAB 13:46
PROVIDERS: ATTEND Family Medicine
DX: R73.01 Impaired fasting glucose (principal); E53.8 Deficiency of other specified B group vitamins; Z98.84 Bariatric surgery status; E78.5 Hyperlipidemia, unspecified

== ENCOUNTER 2022-11-23 08:29 | Outpatient (CLI) | payer MEDICARE, BC, OTHER ==
[~2022-11-23] VITALS: Ht 157.5 cm; Wt 70.5 kg
[2022-11-23 08:30] VITALS: BP 156/86
[2022-11-23] MEDS ORDERED: ACETAMINOPHEN TAB 650MG DOSE (2X325MG) PO ONE (09:00)
[2022-11-23] MEDS ORDERED: diphenhydrAMINE 25MG CAP PO ONE (09:00)
[2022-11-23] MEDS ORDERED: methylPREDNISolone 125MG 2ML VIAL IV ONE (09:00)
[2022-11-23] MEDS ORDERED: OCRELIZUMAB 600 MG in NS 500 ML IV ONE (09:00)
[2022-11-23 09:40] VITALS: BP 150/73
[2022-11-23 10:10] VITALS: BP 160/70
[2022-11-23 10:40] VITALS: BP 148/68
[2022-11-23 11:40] VITALS: BP 152/72
[2022-11-23 13:15] VITALS: BP 150/90
== END 2022-11-23 13:15 | disposition home or self-care (01) ==
LOC: M INFU 08:29
PROVIDERS: ATTEND Nurse Practitioner Family
DX: G35 Multiple sclerosis (principal); Z88.0 Allergy status to penicillin; Z88.8 Allergy status to other drugs, medicaments and biological substances
CPT/HCPCS: 96365; 96366; J2350; J2930

== ENCOUNTER → 2023-02-25 | Outpatient (CLI) | payer MEDICARE, BC, OTHER ==
[2023-02-25 19:18] LABS: BASO # 0.1 10^3/uL (0.0-0.2); BASO % 1.6 % (0.0-1.0); EOS # 0.3 10^3/uL (0.0-0.5); EOS % 3.1 % (0.0-3.0); HEMATOCRIT 37.2 % (36.0-47.0); HEMOGLOBIN 12.3 g/dl (12.0-15.5); LYMPH # 2.1 10^3/uL (1.5-5.0); LYMPH % 26.2 % (24.0-44.0); MEAN CORPUSCULAR HEMOGLOBIN 33.2 pg (27.0-33.0); MEAN CORPUSCULAR HGB CONC 33.1 g/dl (32.0-36.5); MEAN CORPUSCULAR VOLUME 100.5 fl (80.0-96.0); MONO # 0.8 10^3/uL (0.0-0.8); MONO % 9.9 % (2.0-8.0); NEUTROPHILS # 4.7 10^3/uL (1.5-8.5); NEUTROPHILS % 58.8 % (36.0-66.0); PLATELET COUNT, AUTOMATED 156 10^3/uL (150-450)
[2023-02-25 19:19] LABS: HEMOGLOBIN A1c 5.8 % (4.0-6.0)
[2023-02-25 19:31] LABS: FERRITIN 97.7 NG/ML (7.3-270.7)
[2023-02-25 19:32] LABS: ALBUMIN 4.7 G/DL (3.2-5.2); ALKALINE PHOSPHATASE 146 U/L (46-116); ALT/SGPT 24 U/L (7.0-40); AST/SGOT 24 U/L (<34); BILIRUBIN,TOTAL 0.4 MG/DL (0.3-1.2); BLOOD UREA NITROGEN 14 MG/DL (9-23); CALCIUM LEVEL 9.3 MG/DL (8.3-10.6); CARBON DIOXIDE LEVEL 26 MMOL/L (20-31); CHLORIDE LEVEL 105 MMOL/L (98-107); CREATININE FOR GFR 0.88 MG/DL (0.55-1.30); GLOMERULAR FILTRATION RATE > 60.0 (>45); GLUCOSE, FASTING 101 MG/DL (74-106); POTASSIUM SERUM 4.2 MMOL/L (3.5-5.1); PTH INTACT 188.4 PG/ML (18.5-88.0); SODIUM LEVEL 143 MMOL/L (136-145); TOTAL 25(OH) VITAMIN D 64.1 NG/ML (20.0-100.0); TOTAL PROTEIN 7.3 G/DL (5.7-8.2)
[2023-02-25 19:33] LABS: VITAMIN B12 LEVEL 322 PG/ML (211-911)
== END ==
LOC: M PLALAB 14:52
PROVIDERS: ATTEND Family Medicine
DX: D50.9 Iron deficiency anemia, unspecified (principal); E55.9 Vitamin D deficiency, unspecified; R73.01 Impaired fasting glucose

== ENCOUNTER 2023-06-11 10:45 | Outpatient (CLI) | payer MEDICARE, BC, OTHER ==
[~2023-06-11] VITALS: Ht 157.5 cm; Wt 71.8 kg
[~2023-06-11 10:45] MED LIST changes: +ALBUTEROL SULFATE 2.5MG/0.5ML INH NEB SOLN INH PRN; +EPINEPHrine INJ 1 MG/ML 1ML AMP IM PRN; +NS 1,000 ML IV SCH; +diphenhydrAMINE 50MG/ML VIAL IV PRN; +methylPREDNISolone 125MG 2ML VIAL IV PRN
[2023-06-11 11:10] VITALS: BP 163/86; O2SAT 97
[2023-06-11] MEDS ORDERED: OCRELIZUMAB 600 MG in NS 500 ML IV ONE (11:30)
[2023-06-11] MEDS ORDERED: methylPREDNISolone 125MG 2ML VIAL IV ONE (11:30)
[2023-06-11] MEDS ORDERED: ACETAMINOPHEN TAB 650MG DOSE (2X325MG) PO ONE (11:30)
[2023-06-11] MEDS ORDERED: diphenhydrAMINE 50MG CAP PO ONE (11:30)
[2023-06-11 12:30] VITALS: BP 166/88; O2SAT 95
[2023-06-11 13:00] VITALS: BP 174/87; O2SAT 95
[2023-06-11 15:55] VITALS: BP 160/80; O2SAT 95
[2023-06-11 16:00] VITALS: BP 160/80; TEMP 36.4; O2SAT 95
== END 2023-06-11 16:00 ==
LOC: M INFU 10:45
PROVIDERS: ATTEND Physician Assistant
DX: G35 Multiple sclerosis (principal); Z88.0 Allergy status to penicillin; Z88.8 Allergy status to other drugs, medicaments and biological substances
CPT/HCPCS: 96365; 96366; 96375; J2350; J2930

== ENCOUNTER → 2023-06-16 | Outpatient (CLI) | payer MEDICARE, BC, OTHER ==
[~2023-06-16] MED LIST changes: -ALBUTEROL SULFATE 2.5MG/0.5ML INH NEB SOLN INH PRN; -EPINEPHrine INJ 1 MG/ML 1ML AMP IM PRN; -NS 1,000 ML IV SCH; -diphenhydrAMINE 50MG/ML VIAL IV PRN; -methylPREDNISolone 125MG 2ML VIAL IV PRN
== END ==
LOC: M SLEEP HO 10:26
PROVIDERS: ATTEND Family Medicine
DX: R06.83 Snoring (principal)

== ENCOUNTER → 2023-06-21 | Outpatient (REF) | payer MEDICARE, BC, OTHER | LOC: M SFHCPLAZ 15:55 | PROVIDERS: ATTEND Family Medicine | DX: E55.9 Vitamin D deficiency, unspecified (principal); R73.01 Impaired fasting glucose; E78.5 Hyperlipidemia, unspecified; D50.9 Iron deficiency anemia, unspecified ==

== ENCOUNTER 2023-12-10 06:43 | Outpatient (CLI) | payer MEDICARE, BC ==
[2023-12-10] VITALS (7 sets, daily range): BP systolic 140–185; BP diastolic 78–96; O2SAT 95–98
[~2023-12-10] VITALS: Ht 157.5 cm; Wt 72.7 kg
[~2023-12-10 06:43] MED LIST changes: +NS 1,000 ML IV SCH
[2023-12-10] MEDS ORDERED: diphenhydrAMINE 50MG/ML VIAL IV PRN (07:01)
[2023-12-10] MEDS ORDERED: EPINEPHrine INJ 1 MG/ML 1ML AMP IM PRN (07:01)
[2023-12-10] MEDS ORDERED: methylPREDNISolone 125MG 2ML VIAL IV PRN (07:01)
[2023-12-10] MEDS ORDERED: ALBUTEROL SULFATE 2.5MG/0.5ML INH NEB SOLN INH PRN (07:01)
[2023-12-10] MEDS: diphenhydrAMINE 50MG/ML VIAL IV ONE (07:56)
[2023-12-10] MEDS: methylPREDNISolone 125MG 2ML VIAL IV ONE (07:56)
[2023-12-10] MEDS: ACETAMINOPHEN TAB 650MG DOSE (2X325MG) PO ONE (07:56)
[2023-12-10] MEDS: OCRELIZUMAB 600 MG in NS 500 ML IV ONE (07:59)
== END 2023-12-10 12:35 | disposition home or self-care (01) ==
LOC: M INFU 06:43
PROVIDERS: ATTEND Physician Assistant
DX: G35 Multiple sclerosis (principal); G89.4 Chronic pain syndrome; E07.9 Disorder of thyroid, unspecified; E78.00 Pure hypercholesterolemia, unspecified
CPT/HCPCS: 80053; 80061; 82306; 82747; 83036; 83970; 84439; 84443; 96365; 96366; 96375; J1200; J2350; J2919

== ENCOUNTER → 2023-12-10 | Outpatient (CLI) | payer MEDICARE, BC ==
[~2023-12-10] MED LIST changes: +IRBE150T27 PO; -IRBE150T7 PO
[2023-12-10 08:40] LABS: HEMATOCRIT 38.2 % (36.0-47.0)
[2023-12-10 08:56] LABS: ALBUMIN 4.1 G/DL (3.2-5.2); ALKALINE PHOSPHATASE 121 U/L (46-116); ALT/SGPT 20 U/L (7.0-40); AST/SGOT 25 U/L (<34); BILIRUBIN,TOTAL 0.4 MG/DL (0.3-1.2); BLOOD UREA NITROGEN 15 MG/DL (9-23); CALCIUM LEVEL 9.2 MG/DL (8.3-10.6); CARBON DIOXIDE LEVEL 28 MMOL/L (20-31); CHLORIDE LEVEL 107 MMOL/L (98-107); CHOLESTEROL LEVEL 155 MG/DL (<200); CHOLESTEROL RISK RATIO 2.31 (<5); CREATININE FOR GFR 0.92 MG/DL (0.55-1.30); GLOMERULAR FILTRATION RATE > 60.0 (>45); GLUCOSE, FASTING 99 MG/DL (74-106); HDL CHOLESTEROL 66.9 MG/DL (>40); LDL CHOLESTEROL 66.7 MG/DL (<100); NON-HDL-C 88.1 MG/DL; POTASSIUM SERUM 4.1 MMOL/L (3.5-5.1); SODIUM LEVEL 142 MMOL/L (136-145); TOTAL PROTEIN 7.1 G/DL (5.7-8.2); TRIGLYCERIDES LEVEL 107 MG/DL (<150)
[2023-12-10 08:58] LABS: HEMOGLOBIN A1c 5.7 % (4.0-6.0)
[2023-12-10 08:59] LABS: THYROID STIMULATING HORMONE 5.132 uIU/ML (0.55-4.78); TOTAL 25(OH) VITAMIN D 58.5 NG/ML (20.0-100.0)
== END ==
LOC: M LAB 06:49
PROVIDERS: ATTEND Family Medicine
DX: G89.4 Chronic pain syndrome (principal); E07.9 Disorder of thyroid, unspecified; E78.00 Pure hypercholesterolemia, unspecified

== ENCOUNTER → 2024-02-11 | Outpatient (REF) | payer MEDICARE, BC ==
[~2024-02-11] MED LIST changes: -NS 1,000 ML IV SCH
== END ==
LOC: M SFHCPLAZ 11:58
PROVIDERS: ATTEND Family Medicine
DX: E55.9 Vitamin D deficiency, unspecified (principal); R73.01 Impaired fasting glucose; E78.5 Hyperlipidemia, unspecified; I10 Essential (primary) hypertension; D50.9 Iron deficiency anemia, unspecified; E03.9 Hypothyroidism, unspecified

== ENCOUNTER 2024-07-18 06:49 | Outpatient (CLI) | payer MEDICARE, BC ==
[~2024-07-18] VITALS: Ht 167.6 cm; Wt 71.0 kg
[~2024-07-18 06:49] MED LIST changes: +NS 1,000 ML IV SCH
[2024-07-18] MEDS ORDERED: methylPREDNISolone 125MG 2ML VIAL IV PRN (07:01)
[2024-07-18] MEDS ORDERED: diphenhydrAMINE 50MG/ML VIAL IV PRN (07:01)
[2024-07-18] MEDS ORDERED: EPINEPHrine INJ 1 MG/ML 1ML AMP IM PRN (07:01)
[2024-07-18] MEDS ORDERED: ALBUTEROL SULFATE 2.5MG/0.5ML INH NEB SOLN INH PRN (07:01)
[2024-07-18] MEDS: diphenhydrAMINE 50MG IV PRIOR TO INFUSION IV ONE (07:14)
[2024-07-18] MEDS: ACETAMINOPHEN 650MG PO PRIOR TO INFUSION PO ONE (07:14)
[2024-07-18] MEDS: methylPREDNISolone 125MG 2ML VIAL IV ONE (07:14)
[2024-07-18 07:28] VITALS: BP 116/72; O2SAT 98
[2024-07-18] MEDS: OCRELIZUMAB 600 MG in NS 500 ML IV ONE (07:59)
[2024-07-18 10:21] VITALS: BP 127/76; O2SAT 93
[2024-07-18 12:10] VITALS: BP 144/89; O2SAT 96
== END 2024-07-18 12:30 ==
LOC: M INFU 06:49
PROVIDERS: ATTEND Physician Assistant
DX: G35 Multiple sclerosis (principal); Z88.0 Allergy status to penicillin; Z88.8 Allergy status to other drugs, medicaments and biological substances
CPT/HCPCS: 96365; 96366; 96375; J1200; J2350; J2919

== ENCOUNTER → 2024-11-22 | Outpatient (CLI) | payer MEDICARE, BC ==
[~2024-11-22] MED LIST changes: -NS 1,000 ML IV SCH
== END ==
LOC: M WHC 08:19
PROVIDERS: ATTEND Family Medicine
DX: Z12.31 Encounter for screening mammogram for malignant neoplasm of breast (principal)

== ENCOUNTER → 2025-06-12 | Outpatient (REF) | payer MEDICARE, BC ==
[~2025-06-12] MED LIST changes: -AMBI10TA PO; +PREG-35 PO; -PREG100CA PO; +ZOLP-533 PO
[2025-06-12 15:38] LABS: APPEARANCE, URINE HAZY (CLEAR); BACTERIA, URINE AUTO NEGATIVE (NEGATIVE); BILIRUBIN, URINE AUTO NEGATIVE (NEGATIVE); BLOOD, URINE BLOOD NEGATIVE (NEGATIVE); CALCIUM OXALATE CRYSTALS SMALL; GLUCOSE, URINE (UA) AUTO NEGATIVE (NEGATIVE); KETONE, URINE AUTO NEGATIVE (NEGATIVE); LEUKOCYTE ESTERASE, URINE AUTO NEGATIVE (NEGATIVE); MUCUS, URINE SMALL (NEGATIVE); NITRITE, URINE AUTO NEGATIVE (NEGATIVE); PROTEIN, URINE AUTO NEGATIVE (NEGATIVE); RBC, URINE AUTO 1 /HPF (0-3); SPECIFIC GRAVITY URINE AUTO 1.016 (1.002-1.035); SQUAMOUS EPITHELIAL CELL UR AU 0 /HPF (0-6); UROBILINOGEN, URINE AUTO 0.2 mg/dL (0.0-2.0); WBC, URINE AUTO 1 /HPF (0-3)
== END ==
LOC: M SFHCPLAZ 15:05
PROVIDERS: ATTEND Family Medicine
DX: R33.9 Retention of urine, unspecified (principal)

== ENCOUNTER → 2025-06-12 | Outpatient (CLI) | payer MEDICARE, BC ==
[2025-06-12 14:06] LABS: ALT/SGPT 32 U/L (7.0-40); AST/SGOT 38 U/L (<34); CALCIUM LEVEL 8.9 MG/DL (8.3-10.6); CARBON DIOXIDE LEVEL 25 MMOL/L (20-31); CHLORIDE LEVEL 106 MMOL/L (98-107); CREATININE FOR GFR 1.18 MG/DL (0.55-1.30); GLOMERULAR FILTRATION RATE 50.6 (>45); POTASSIUM SERUM 4.3 MMOL/L (3.5-5.1); SODIUM LEVEL 140 MMOL/L (136-145)
[2025-06-12 14:08] LABS: TOTAL 25(OH) VITAMIN D 91.8 NG/ML (20.0-100.0)
== END ==
LOC: M PLALAB 10:03
PROVIDERS: ATTEND Physician Assistant
DX: G35.D Multiple sclerosis, unspecified (principal); E55.9 Vitamin D deficiency, unspecified

== ENCOUNTER → 2025-06-12 | Outpatient (CLI) | payer MEDICARE, BC ==
[2025-06-12 14:01] LABS: BASO # 0.1 10^3/uL (0.0-0.2); BASO % 1.7 % (0.0-1.0); EOS # 0.2 10^3/uL (0.0-0.5); EOS % 4.6 % (0.0-3.0); LYMPH # 1.3 10^3/uL (1.5-5.0); LYMPH % 24.0 % (24.0-44.0); MONO # 0.5 10^3/uL (0.0-0.8); MONO % 9.7 % (2.0-8.0); NEUTROPHILS # 3.1 10^3/uL (1.5-8.5); NEUTROPHILS % 59.6 % (36.0-66.0); PLATELET COUNT, AUTOMATED 148 10^3/uL (150-450)
[2025-06-12 14:06] LABS: ALT/SGPT 30.0 U/L (7.0-40); AST/SGOT 38.0 U/L (<34); CALCIUM LEVEL 9.2 MG/DL (8.3-10.6); CARBON DIOXIDE LEVEL 23.0 MMOL/L (20-31); CHLORIDE LEVEL 107.0 MMOL/L (98-107); CHOLESTEROL LEVEL 155.0 MG/DL (<200); CHOLESTEROL RISK RATIO 2.13 (<5); CREATININE FOR GFR 1.19 MG/DL (0.55-1.30); GLOMERULAR FILTRATION RATE 50.1 (>45); IRON (FE) 92.0 UG/DL (50-170); LDL CHOLESTEROL 63.1 MG/DL (<100); NON-HDL-C 82.5 MG/DL; PERCENT SATURATION 28.6 % (13.2-45.0); POTASSIUM SERUM 4.1 MMOL/L (3.5-5.1); SODIUM LEVEL 143.0 MMOL/L (136-145); TRIGLYCERIDES LEVEL 97.0 MG/DL (<150)
[2025-06-12 14:07] LABS: FREE T4 0.8 NG/DL (0.89-1.76); PTH INTACT 171.8 PG/ML (18.5-88.0)
[2025-06-12 14:08] LABS: TOTAL 25(OH) VITAMIN D 88.3 NG/ML (20.0-100.0)
[2025-06-14 12:47] LABS: ERYTHROPOIETIN 6.3 mIU/mL (2.6-18.5)
== END ==
LOC: M PLALAB 10:14
PROVIDERS: ATTEND Family Medicine
DX: D61.818 Other pancytopenia (principal); E55.9 Vitamin D deficiency, unspecified; I10 Essential (primary) hypertension; D50.9 Iron deficiency anemia, unspecified; E78.5 Hyperlipidemia, unspecified; K76.0 Fatty (change of) liver, not elsewhere classified

== ENCOUNTER 2025-07-20 06:54 | Outpatient (CLI) | payer MEDICARE, BC ==
[~2025-07-20] VITALS: Ht 157.5 cm; Wt 65.9 kg
[~2025-07-20 06:54] MED LIST changes: +NS (Normal Saline) 0.9% 1,000 ML IV SCH
[2025-07-20 07:12] VITALS: BP 123/71; O2SAT 98
[2025-07-20] MEDS: diphenhydrAMINE 50MG IV PRIOR TO INFUSION IV ONE (08:11)
[2025-07-20] MEDS: ACETAMINOPHEN 650MG PO PRIOR TO INFUSION PO ONE (08:12)
[2025-07-20] MEDS: OCRELIZUMAB 600 MG in NS 500 ML IV ONE (08:13)
[2025-07-20 09:00] VITALS: BP 118/64; O2SAT 98
[2025-07-20 09:30] VITALS: BP 129/64; O2SAT 97
[2025-07-20 10:00] VITALS: BP 127/66; O2SAT 97
[2025-07-20 11:00] VITALS: BP 131/73; O2SAT 95
[2025-07-20 13:05] VITALS: BP 135/82; O2SAT 96
== END 2025-07-20 13:05 | disposition home or self-care (01) ==
LOC: M INFU 06:54
PROVIDERS: ATTEND Physician Assistant
DX: G35.D Multiple sclerosis, unspecified (principal); Z88.0 Allergy status to penicillin; Z88.8 Allergy status to other drugs, medicaments and biological substances
CPT/HCPCS: 96365; 96366; 96375; J1200; J2350; J2919